=== PATIENT | female | born 1970 | race African-American/Black ===

== ENCOUNTER 2016-12-31 12:12 | Emergency (ER) | payer OTHER ==
[~2016-12-31] VITALS: Ht 167.6 cm; Wt 92.1 kg
[~2016-12-31 12:12] MED LIST: AMOXICILLIN500 MG PO; CEFDINIR300 MG PO; CLINDAMYCIN HC300 MG PO; LEVAQUIN500 MG PO; MOTRIN800 MG PO; NAPROSYN500 MG PO; NASONEX17 GM BOTH NARES; NO HOME MEDS; PERCOCET 5/31 TABLET PO; PREDNISONE50 MG PO; ULTRAM50 MG PO
[2016-12-31] MEDS ORDERED: NAPROSYN500 MG PO (15:20)
[2016-12-31] MEDS ORDERED: TRAMADOL HCL50 MG PO (15:20)
[2016-12-31] MEDS ORDERED: SKELAXIN800 MG PO (15:20)
[2016-12-31 15:37] VITALS: BP 119/74
== END 2016-12-31 15:37 | disposition home or self-care (01) ==
LOC: EME 12:12
DX: S16.1XXA Strain of muscle, fascia and tendon at neck level, initial encounter (principal); S39.012A Strain of muscle, fascia and tendon of lower back, initial encounter; V49.40XA Driver injured in collision with unspecified motor vehicles in traffic accident, initial encounter
CPT/HCPCS: 99281; 99283

== ENCOUNTER 2017-07-27 20:18 | Emergency (ER) | payer OTHER ==
[~2017-07-27] VITALS: Ht 167.6 cm; Wt 99.7 kg
[~2017-07-27 20:18] MED LIST changes: +SKELAXIN800 MG PO; +TRAMADOL HCL50 MG PO
[2017-07-27 21:46] LABS: HEMATOCRIT 37.3 % (36.0-46.0); MCH 26.1 PG (29.0-34.0); MCHC 32.7 G/DL (30.0-36.0); MCV 79.9 FL (83-99); MEAN PLAT.VOLUME 10.9 uM^3 (9.5-12.4); PLATELET COUNT 251 K/uL (156-360); RBC DIS.WIDTH-CV 14.5 % (11.8-14.6); RED BLOOD COUNT 4.67 M/uL (3.80-5.20); WHITE BLOOD COUNT 5.9 K/uL (4.1-10.2)
[2017-07-27 22:02] LABS: TROP-I INTERPRETATION NEGATIVE; TROPONIN-I < 0.01 ng/mL (0.0-0.30)
[2017-07-27 22:20] LABS: CHLORIDE 104 mEq/L (99-109); POTASSIUM 3.7 mEq/L (3.7-5.4); SODIUM 138 mEq/L (136-147)
[2017-07-27 22:21] LABS: GLUCOSE 103 mg/dL (70-99)
[2017-07-27 22:23] LABS: ANION GAP 11 MEQ/L (2-14)
[2017-07-27 22:25] LABS: GFR ESTIMATE (CALCULATED) > 59 mL/min/
[2017-07-27 22:26] LABS: UREA NITROGEN (BUN) 9 mg/dL (9-23)
[2017-07-28 00:59] VITALS: BP 106/80
== END 2017-07-28 01:01 | disposition home or self-care (01) ==
LOC: EME 20:18
DX: R00.2 Palpitations (principal); R00.0 Tachycardia, unspecified
CPT/HCPCS: 71020; 80048; 84484; 85027; 93005; 99281; 99284